=== PATIENT | male | born 1965 | race Hispanic/Latino ===

== ENCOUNTER 2021-02-28 19:05 | Emergency (ER) | payer OTHER ==
[2021-02-28] MEDS ORDERED: HYDROcodone/Acetaminophen 5/325 mg Tablet ONE (20:12)
== END 2021-02-28 21:16 | disposition home or self-care (01) ==
LOC: CSHERS 19:05
DX: M79.662 Pain in left lower leg (principal); E11.9 Type 2 diabetes mellitus without complications; I10 Essential (primary) hypertension

== ENCOUNTER 2023-02-26 07:40 | Outpatient (CLI) | payer OTHER ==
[2023-02-26] MEDS ORDERED: Magnevist 469MG/ML 20 ML VIAL ONE (13:55)
== END 2023-02-26 07:41 | disposition home or self-care (01) ==
LOC: CSHMRI 07:40
PROVIDERS: ATTEND Urology
DX: C61 Malignant neoplasm of prostate (principal)
CPT/HCPCS: 72197; A9579

== ENCOUNTER 2023-04-02 08:20 | Day surgery (SDC) | payer OTHER ==
[2023-04-02 09:05] VITALS: BMI 28.3
[2023-04-02] MEDS ORDERED: PROPOFOL 40 ML ONE (09:14)
[2023-04-02] MEDS ORDERED: Lidocaine 2% MPF 10 ML AMP (For Epidural Use) ONE (09:14)
[2023-04-02] MEDS ORDERED: Ondansetron PF 4 MG/2 ML Vial ONE (10:20)
== END 2023-04-02 11:20 | disposition home or self-care (01) ==
LOC: CSHSDC 08:20
PROVIDERS: ATTEND Internal Medicine Gastroenterology
PROC: 0DBP8ZZ Excision of Rectum, Via Natural or Artificial Opening Endoscopic (ICD-10-PCS; principal; 2023-04-02)
DX: Z12.11 Encounter for screening for malignant neoplasm of colon (principal); D12.8 Benign neoplasm of rectum; C61 Malignant neoplasm of prostate; I10 Essential (primary) hypertension; E78.5 Hyperlipidemia, unspecified; E11.9 Type 2 diabetes mellitus without complications; K64.9 Unspecified hemorrhoids; Z98.890 Other specified postprocedural states; Z79.84 Long term (current) use of oral hypoglycemic drugs; Z79.899 Other long term (current) drug therapy
CPT/HCPCS: 88305; J2405; J2704

== ENCOUNTER 2023-06-04 | Outpatient (CLI) | payer OTHER | END 2023-06-04 09:50 | disposition home or self-care (01) | DX: C61 Malignant neoplasm of prostate (principal); N40.2 Nodular prostate without lower urinary tract symptoms; C78.5 Secondary malignant neoplasm of large intestine and rectum ==

== ENCOUNTER 2023-09-06 09:47 | Outpatient (CLI) | payer OTHER | END 2023-09-06 09:48 | disposition home or self-care (01) | LOC: CSHMRI 09:47 | PROVIDERS: ATTEND Radiology Radiation Oncology | DX: C61 Malignant neoplasm of prostate (principal); N40.2 Nodular prostate without lower urinary tract symptoms | CPT/HCPCS: 72197 ==